=== PATIENT | male | born 2000 | race African-American/Black ===

== ENCOUNTER 2025-01-21 21:25 | Emergency (ER) | payer OTHER ==
[~2025-01-21] VITALS: Ht 177.8 cm; Wt 72.7 kg
[~2025-01-21 21:25] MED LIST: NOCURR
[2025-01-21 22:00] VITALS: TEMP 98.9
[2025-01-21] MEDS ORDERED: MORPHINE SULFATE 10 MG/ML VIAL IM ONE (23:30)
[2025-01-21] MEDS: MORPHINE SULFATE 4 MG/ML SYRINGE IM ONE (23:34)
[2025-01-22] MEDS: SODIUM CHLORIDE 0.9% 1,000 ML IV ONE (01:25)
[2025-01-22 01:29] LABS: PLATELET COUNT (AUTO) 265 K/uL (150-450); RED BLOOD CELL COUNT(AUTO) 4.54 MIL/uL (4.50-5.90); RED CELL DISTRIBUTION WIDTH 13.0 % (11.5-14.5); WHITE BLOOD COUNT (AUTO) 14.9 K/uL (4.5-11.0)
[2025-01-22 01:37] LABS: CALCIUM, TOTAL 9.4 mg/dL (8.8-10.5); CREATININE 0.85 mg/dL (0.60-1.30); GLOMERULAR FILTR. RATE CALC > 60 mL/min (>60); GLUCOSE,RANDOM 106 mg/dL (70-110); SODIUM SERUM 141 mmol/L (136-145); UREA NITROGEN, BLOOD 7 mg/dL (7-18)
[2025-01-22] MEDS: PENICILLIN G POTASSIUM 2 MILUNITS in DEXTROSE 5%-WATER 50 ML IV ONE (01:48)
[2025-01-22 02:15] VITALS: BP 170/96; PULSE 70; RESP 14; O2SAT 98
[2025-01-22] MEDS: KETOROLAC TROMETHAMINE 30 MG/ML VIAL IVP ONE (02:27)
[2025-01-22] MEDS: MORPHINE SULFATE 4 MG/ML SYRINGE IVP ONE (02:27)
== END 2025-01-22 04:38 | disposition short-term general hospital (02) ==
LOC: EMS 21:25
DX: S02.609A Fracture of mandible, unspecified, initial encounter for closed fracture (principal); J45.909 Unspecified asthma, uncomplicated; R13.10 Dysphagia, unspecified; F12.90 Cannabis use, unspecified, uncomplicated; Y04.0XXA Assault by unarmed brawl or fight, initial encounter; Y93.89 Activity, other specified; Y92.89 Other specified places as the place of occurrence of the external cause; Y99.8 Other external cause status
CPT/HCPCS: 99285; 70486; 80048; 85025; 85610; 36415; 96372; 96365; 96361; 96375; J2270 ×2; J1885; J2540; J7060; J7030